=== PATIENT | male | born 1965 | race Caucasian/White ===

== ENCOUNTER → 2018-04-17 18:51 | Outpatient (CLI) | payer MEDICAID ==
[2018-04-17 20:32] LABS: C-REACTIVE PROTEIN 0.3 mg/dL (0.0-0.9); URIC ACID 7.5 mg/dL (2.6-7.2)
[2018-04-17 21:09] LABS: ERYTHROCYTE SEDIMENTATION RATE 14 mm/hr (0-20)
[2018-04-19 11:15] LABS: ANA REFLEX - DIRECT Negative (Negative)
== END | disposition home or self-care (01) ==
LOC: D.LABREF 18:51
PROVIDERS: Orthopaedic Surgery
DX: M25.561 Pain in right knee (principal)